=== PATIENT | male | born 1980 | race Caucasian/White ===

== ENCOUNTER 2022-08-29 10:38 | Outpatient (CLI) | payer BC, SELFPAY | END 2022-08-29 10:39 | disposition home or self-care (01) | PROVIDERS: PCP Physician Assistant; Visit Provider Family Medicine | DX: M54.16 Radiculopathy, lumbar region (principal); M51.36 Other intervertebral disc degeneration, lumbar region | CPT/HCPCS: 64483; J1100; Q9966 ==

== ENCOUNTER 2022-12-05 07:44 | Outpatient (CLI) | payer BC, SELFPAY | END 2022-12-05 07:45 | disposition home or self-care (01) | LOC: INJ CL 07:45 | PROVIDERS: PCP Physician Assistant; Visit Provider Family Medicine | DX: M25.551 Pain in right hip (principal); M70.61 Trochanteric bursitis, right hip | CPT/HCPCS: 20610; 77002; J0702; Q9966 ==